=== PATIENT | male | born 1995 | race Caucasian/White ===

== ENCOUNTER 2018-09-17 07:28 | Emergency (ER) | payer OTHER ==
[2018-09-17 07:32] VITALS: BP 125/93; TEMP 96.6; BMI 29.5
--- NOTE | 2018-09-17 08:13 | ED.PDOC ---
General ED Provider: Dr. CHRIS BARRERA Chief Complaint: Tooth Problem Stated Complaint: Tooth Ache-Lt lower jaw Time Seen by Physician: 07:30 Mode of Arrival: Walk-In Information Source: Patient Exam Limitations: No limitations Primary Care Provider: ZAK DUMONT Nursing and Triage Documentation Reviewed and Agree: Yes Does patient meet sepsis criteria?: No System Inflammatory Response Syndrome: Not Applicable Sepsis Protocol: For patient's 13 years and over: Temp is 96.8 and below OR 101 and greater Pulse >90 BPM Resp >20/minute Acutely Altered Mental Status Are patient's symptoms suggestive of a new infection, such as: -Pneumonia -Skin, Soft Tissue -Endocarditis -UTI -Bone, Joint Infection -Implantable Device -Acute Abdominal Infection -Wound Infection -Meningitis -Blood Stream Catheter Infection -Unknown EENT Complaint Exam - Dental/Oral Complaint/Exam Mechanism of Injury: Unknown Onset/Duration: 48 hrs Symptoms Are: Still present Timing: Constant Initial Severity: Moderate Current Severity: Moderate Character: Reports: Dull, Aching, Throbbing Aggravating: Reports: Chewing Alleviating: Reports: None Associated Signs and Symptoms: Reports: Swelling Related History: Denies: Similar episode Cardiac Risk Factors: Reports: None Dental/Oral Surgical History: Reports: None Tooth Findings: Present: Percussion tenderness (evidence previous fillings) Cervical Lymphadenopathy Present: No Facial Swelling Present: Yes (Slight lt mandibular) Bleeding Present: No Oropharynx Findings: Absent: Clots, Active bleeding Septal Hematoma: No Foreign Body Present: No Dysphagia Present: No Drooling Present: No Asymmetrical Tonsillar Swelling Present: No Uvula Midline: No Telma-tonsillar Fluctuence: No Trismus Present: No Palatal Petechiae Present: No Scarlatinaform Rash Present: No Lesions: Absent: Lip, Gums [place]: Absent: Gums Vesicles: Absent: Gums Differential Diagnoses: Dental Abcess, Dental Caries (not identified), Odontogenic Pain Review of Systems - Review Of Systems Constitutional: Reports: No symptoms Eyes: Reports: No symptoms Ears, Nose, Mouth, Throat: Reports: Mouth pain Respiratory: Reports: No symptoms Cardiac: Reports: No symptoms GI: Reports: No symptoms : Reports: No symptoms Musculoskeletal: Reports: No symptoms Skin: Reports: No symptoms Neurological: Reports: No symptoms Endocrine: Reports: No symptoms Hematologic/Lymphatic: Reports: No symptoms All Other Systems: Reviewed and Negative Past Medical History - Past Medical History Previously Healthy: Yes Endocrine: Reports: None Cardiovascular: Reports: None Respiratory: Reports: None Hematological: Reports: None Gastrointestinal: Reports: None Genitourinary: Reports: None Neuro/Psych: Reports: None Musculoskeletal: Reports: None Cancer: Reports: None - Surgical History General Surgical History: Reports: None - Family History Family History: Reports: None - Social History Smoking Status: Never smoker Hx Substance Use: No Alcohol Screening: None Physical Exam - Physical Exam Appearance: Well-appearing, Well-nourished Ill-appearing: Moderate Eyes: MERISSA, EOMI, Conjunctiva clear ENT: Ears normal, Nose normal, Oropharynx normal Respiratory: Airway patent, Breath sounds clear, Breath sounds equal, Respirations nonlabored Cardiovascular: RRR, Pulses normal, No rub, No murmur GI/: Soft, Nontender, No masses, Bowel sounds normal, No Organomegaly Musculoskeletal: Normal strength, ROM intact, No edema, No calf tenderness Skin: Warm, Dry, Normal color Neurological: Sensation intact, Motor intact, Reflexes intact, Cranial nerves intact, Alert, Oriented Psychiatric: Affect appropriate, Mood appropriate Critical Care Note - Critical Care Note Total Time (mins): 0 Course - Course Vital Signs: Temp Pulse Resp BP Pulse Ox 09/17/18 07:28 96.6 F L 86 20 125/93 H 98 Departure - Departure Time of Disposition: 08:25 Disposition: HOME SELF-CARE Discharge Problem: Pain, dental Instructions: Dental Abscess (ED), Toothache (ED) Condition: Good Pt referred to PMD for follow-up: Yes (Dentist) IPMP verified?: No Additional Instructions: Meds Rinse mouth warm salt water Ibuprofen 800mg every 8rs routine Use norco for prn severe pain Take antibiotics Keep Dentist Appointment Prescriptions: Hydrocodone Bit/Acetaminophen [Flintstone 7.5-325] 1 - 2 each PO Q6HR PRN #20 tablet PRN Reason: Severe Toothache Clindamycin HCl 300 mg PO QID #21 capsule Allergies/Adverse Reactions: Allergies No Known Allergies Allergy (Verified 09/17/18 07:32) Home Medications: Ambulatory Orders Albuterol Sulfate [Albuterol Sulfate Hfa] 18 gm IH PRN PRN 02/06/14 Clindamycin HCl [Cleocin] 150 mg PO Q6HR #20 cap 09/17/18 Ketorolac Tromethamine [Toradol] 10 mg PO Q6H PRN #20 tablet 09/17/18 Disposition Discussed With: Patient
--- NOTE | 2018-09-17 08:20 | CT ---
EXAM: CT sinuses/facial bones without contrast HISTORY: Dental and jaw pain COMPARISON: None TECHNIQUE: Serial axial images of the facial bones/sinuses were obtained without IV contrast. These were viewed in coronal, sagittal and axial planes. FINDINGS: There is scattered mild mucosal thickening in the ethmoid air cells and minimal mucosal th ickening in the dependent maxillary sinuses. The ostiomeatal units are patent. There is rightward n elizabet septal deviation with a 0.4 cm rightward nasal septal spur. The nasal turbinates are normal. T he mandible is normal. The pterygoid plates are normal. Nasal bones are normal. The parotid is nor mal. The soft tissues are unremarkable. No dental abnormalities present. IMPRESSION: 1. No abnormal dental process or soft tissue abnormality of the mandible. 2. Minimal mucosal thickening in the paranasal sinuses with patent ostiomeatal units. 3. Mild rightward nasal septal deviation with a 0.4 cm rightward nasal septal spur.
== END 2018-09-17 09:08 | disposition home or self-care (01) ==
LOC: ED 07:28
DX: K08.89 Other specified disorders of teeth and supporting structures (principal)
CPT/HCPCS: 99282